=== PATIENT | male | born 1985 | race African-American/Black ===

== ENCOUNTER 2016-11-12 07:29 | Emergency (ER) | payer SELFPAY ==
[~2016-11-12] VITALS: Ht 172.7 cm; Wt 90.9 kg
[~2016-11-12 07:29] MED LIST: NOCURR
[2016-11-12] MEDS ORDERED: KETOROLAC TROMETHAMINE 30 MG/ML VIAL IM ONE (08:45)
[2016-11-12 09:53] VITALS: BP 140/80
== END 2016-11-12 09:54 | disposition home or self-care (01) ==
LOC: EMS 07:30
DX: M54.32 Sciatica, left side (principal); F17.210 Nicotine dependence, cigarettes, uncomplicated
CPT/HCPCS: 96372; 99283; J1885

== ENCOUNTER 2016-11-14 11:22 | Emergency (ER) | payer SELFPAY ==
[~2016-11-14] VITALS: Ht 172.7 cm; Wt 81.0 kg
[2016-11-14 11:37] VITALS: BP 133/64
== END 2016-11-14 15:28 | disposition home or self-care (01) ==
LOC: EMS 11:23
DX: S76.312A Strain of muscle, fascia and tendon of the posterior muscle group at thigh level, left thigh, initial encounter (principal); F17.210 Nicotine dependence, cigarettes, uncomplicated; X58.XXXA Exposure to other specified factors, initial encounter; Y93.89 Activity, other specified; Y92.89 Other specified places as the place of occurrence of the external cause; Y99.8 Other external cause status
CPT/HCPCS: 99281

== ENCOUNTER 2018-08-18 14:58 | Emergency (ER) | payer SELFPAY ==
[~2018-08-18] VITALS: Ht 175.3 cm; Wt 109.1 kg
[2018-08-18] MEDS: SILVER NITRATE APPLICATOR 1 EA STICK TP ONE (15:36)
[2018-08-18] MEDS: PERTUSS(ACELL),DIPH,TET VAC/PF 0.5 ML VIAL IM ONE (15:37)
[2018-08-18] MEDS: BACITRACIN 0.9 GM PACKET OINTMENT TP ONE (15:37)
[2018-08-18 16:17] VITALS: BP 138/74
== END 2018-08-18 16:19 | disposition home or self-care (01) ==
LOC: EMS 14:58
DX: S61.312A Laceration without foreign body of right middle finger with damage to nail, initial encounter (principal); W45.8XXA Other foreign body or object entering through skin, initial encounter; F17.210 Nicotine dependence, cigarettes, uncomplicated; Y93.G3 Activity, cooking and baking; Y92.89 Other specified places as the place of occurrence of the external cause; Y99.8 Other external cause status
CPT/HCPCS: 12001; 90471; 90715; 99406

== ENCOUNTER 2019-07-23 05:08 | Emergency (ER) | payer SELFPAY ==
[~2019-07-23] VITALS: Ht 172.7 cm; Wt 103.2 kg
[2019-07-23] MEDS ORDERED: OLOPATADINE HCL 0.1% 5 ML OPHTHALMIC SOLUTION OS ONE (06:30)
[2019-07-23 06:48] VITALS: BP 128/100
== END 2019-07-23 06:55 | disposition home or self-care (01) ==
LOC: EMS 05:08
DX: H10.12 Acute atopic conjunctivitis, left eye (principal); F17.210 Nicotine dependence, cigarettes, uncomplicated
CPT/HCPCS: 99406

== ENCOUNTER 2019-12-15 17:39 | Emergency (ER) | payer SELFPAY ==
[~2019-12-15] VITALS: Ht 175.3 cm; Wt 99.1 kg
[2019-12-15] MEDS ORDERED: IBUPROFEN 400 MG TABLET PO ONE (18:15)
[2019-12-15 19:27] VITALS: BP 124/78
== END 2019-12-15 19:28 | disposition home or self-care (01) ==
LOC: EMS 17:40
DX: M75.31 Calcific tendinitis of right shoulder (principal); F17.210 Nicotine dependence, cigarettes, uncomplicated; J40 Bronchitis, not specified as acute or chronic
CPT/HCPCS: 99406

== ENCOUNTER 2020-06-07 19:00 | Emergency (ER) | payer SELFPAY ==
[~2020-06-07] VITALS: Ht 172.7 cm; Wt 99.5 kg
[2020-06-07 19:55] LABS: BASOPHILS % (AUTO) 0.5 % (0.0-2.0); EOSINOPHILS % (AUTO) 1.9 % (1.0-6.0); HEMATOCRIT 42.5 % (41-53); HEMOGLOBIN 14.2 g/dL (13.5-17.5); LYMPHOCYTES # (AUTO) 2.5 K/uL (1.0-4.8); LYMPHOCYTES % (AUTO) 22.8 % (22.0-44.0); MEAN CORPUSCULAR HEMOGLOBIN 29.6 pg (26.0-34.0); MEAN CORPUSCULAR HGB CONC 33.4 G/dL (31.0-37.0); MEAN CORPUSCULAR VOLUME 89 fL (80-100); MONOCYTES # (AUTO) 1.1 K/uL (0.1-1.0); MONOCYTES % (AUTO) 9.6 % (2.0-9.0); NEUTROPHILS # (AUTO) 7.2 K/uL (1.8-7.7); NEUTROPHILS % (AUTO) 65.2 % (40.0-70.0); PLATELET COUNT (AUTO) 188 K/uL (150-450); RED BLOOD CELL COUNT(AUTO) 4.79 MIL/uL (4.50-5.90); RED CELL DISTRIBUTION WIDTH 13.1 % (11.5-14.5)
[2020-06-07 20:05] VITALS: BP 130/79
[2020-06-07 20:11] LABS: ANION GAP 8 mmol/L (8-16); CALCIUM, TOTAL 8.6 mg/dL (8.8-10.5); CARBON DIOXIDE 27 mmol/L (22-29); CHLORIDE 106 mmol/L (98-107); CREATININE 0.77 mg/dL (0.60-1.30); GLOMERULAR FILTR. RATE CALC > 60 mL/min (>60); GLUCOSE,RANDOM 141 mg/dL (70-110); POTASSIUM 3.7 mmol/L (3.5-5.1); SODIUM SERUM 141 mmol/L (136-145); UREA NITROGEN, BLOOD 11 mg/dL (7-18)
[2020-06-07 20:17] LABS: ALANINE AMINOTRANSFERASE 18 U/L (12-78); ALBUMIN 3.3 g/dL (3.4-5.0); ALKALINE PHOSPHATASE 91 U/L (46-116); ASPARTATE AMINOTRANSFERASE 12 U/L (15-37); BILIRUBIN,TOTAL 0.3 mg/dL (0.1-1.0); LIPASE 126 U/L (73-393); TOTAL PROTEIN, SERUM 7.2 g/dL (6.4-8.2)
== END 2020-06-07 20:49 | disposition home or self-care (01) ==
LOC: EMS 19:00
DX: R19.7 Diarrhea, unspecified (principal); R10.32 Left lower quadrant pain; Z20.828 Contact with and (suspected) exposure to other viral communicable diseases
CPT/HCPCS: 36415; 80053; 83690; 85025; 99283; U0003

== ENCOUNTER 2020-07-22 15:27 | Emergency (ER) | payer MEDICAID, SELFPAY ==
[~2020-07-22] VITALS: Ht 175.3 cm; Wt 90.9 kg
[2020-07-22] MEDS ORDERED: LIDOCAINE 5% TRANSDERMAL PATCH TD ONE (17:15)
[2020-07-22 17:42] VITALS: BP 132/78
== END 2020-07-22 17:43 | disposition home or self-care (01) ==
LOC: EMS 15:27
DX: M54.2 Cervicalgia (principal); M25.512 Pain in left shoulder; F17.210 Nicotine dependence, cigarettes, uncomplicated; V43.52XA Car driver injured in collision with other type car in traffic accident, initial encounter; Y93.89 Activity, other specified; Y92.488 Other paved roadways as the place of occurrence of the external cause; Y99.8 Other external cause status

== ENCOUNTER 2020-08-31 08:26 | Emergency (ER) | payer MEDICAID ==
[~2020-08-31] VITALS: Ht 175.3 cm; Wt 97.7 kg
[2020-08-31 08:37] VITALS: BP 138/113
== END 2020-08-31 08:50 | disposition home or self-care (01) ==
LOC: EMS 08:28
DX: Z20.822 Contact with and (suspected) exposure to COVID-19 (principal); J40 Bronchitis, not specified as acute or chronic; F17.210 Nicotine dependence, cigarettes, uncomplicated
CPT/HCPCS: 99283; U0003

== ENCOUNTER 2020-11-11 16:21 | Emergency (ER) | payer SELFPAY ==
[~2020-11-11] VITALS: Ht 175.3 cm; Wt 100.0 kg
[2020-11-11 16:25] VITALS: BP 131/90
== END 2020-11-11 17:49 | disposition home or self-care (01) ==
LOC: EMS 16:21
DX: Z04.3 Encounter for examination and observation following other accident (principal); F17.210 Nicotine dependence, cigarettes, uncomplicated; Z91.018 Allergy to other foods
CPT/HCPCS: 99281; Z7502

== ENCOUNTER 2022-08-17 17:25 | Emergency (ER) | payer OTHER ==
[~2022-08-17] VITALS: Ht 172.7 cm; Wt 95.5 kg
[2022-08-17] MEDS ORDERED: GLIP10TA10 PO (17:42)
[2022-08-17] MEDS ORDERED: METF-1211 PO (17:42)
[2022-08-17 17:48] LABS: COVID AG,FIA SOURCE NASAL SWAB
[2022-08-17 18:10] LABS: INFLUENZA TYPE A NEGATIVE FOR TYPE A (NEGATIVE); INFLUENZA TYPE B NEGATIVE FOR TYPE B (NEGATIVE)
[2022-08-17 18:52] LABS: RAPID GROUP A STREP NEGATIVE (NEGATIVE)
[2022-08-17 19:02] VITALS: BP 128/87
== END 2022-08-17 19:34 | disposition home or self-care (01) ==
LOC: EMS 17:27
DX: J06.9 Acute upper respiratory infection, unspecified (principal); E11.9 Type 2 diabetes mellitus without complications; F17.210 Nicotine dependence, cigarettes, uncomplicated; Z91.018 Allergy to other foods; Z98.890 Other specified postprocedural states; Z20.822 Contact with and (suspected) exposure to COVID-19
CPT/HCPCS: 87430; 87804; 99283

== ENCOUNTER 2023-07-19 18:48 | Emergency (ER) | payer OTHER ==
[~2023-07-19] VITALS: Ht 172.7 cm; Wt 100.0 kg
[~2023-07-19 18:48] MED LIST changes: +GLIP10TA10 PO; +METF-1211 PO; -NOCURR
[2023-07-19 18:53] VITALS: BP 150/98; PULSE 88; RESP 18; TEMP 98.5
[2023-07-19] MEDS ORDERED: METHOCARBAMOL 500 MG TABLET PO ONE (20:45)
[2023-07-19] MEDS ORDERED: IBUPROFEN 600 MG TABLET PO ONE (20:45)
== END 2023-07-19 21:00 | disposition left against medical advice (07) ==
LOC: EMS 18:51
DX: M54.2 Cervicalgia (principal); Z53.21 Procedure and treatment not carried out due to patient leaving prior to being seen by health care provider
CPT/HCPCS: 99281; Z7502

== ENCOUNTER 2023-07-22 02:15 | Emergency (ER) | payer OTHER ==
[~2023-07-22] VITALS: Ht 172.7 cm; Wt 100.0 kg
[2023-07-22 02:40] VITALS: BP 147/86; PULSE 70; RESP 16; TEMP 98.2
[2023-07-22] MEDS ORDERED: KETOROLAC TROMETHAMINE 60 MG/2 ML VIAL IM ONE (03:45)
[2023-07-22] MEDS ORDERED: IBUP-1492 PO (03:58)
[2023-07-22 07:22] LABS: GLUCOMETER DEV NAME(LOC) ER.6; GLUCOSE,POINT OF CARE 211 MG/DL (70-110)
== END 2023-07-22 05:20 | disposition home or self-care (01) ==
LOC: EMS 02:17
DX: R51.9 Headache, unspecified (principal); E11.9 Type 2 diabetes mellitus without complications; F17.210 Nicotine dependence, cigarettes, uncomplicated; Z91.018 Allergy to other foods
CPT/HCPCS: 99283; 82962; 96372; J1885

== ENCOUNTER 2025-02-13 08:27 | Emergency (ER) | payer MEDICAID, OTHER ==
[~2025-02-13] VITALS: Ht 172.7 cm; Wt 100.0 kg
[~2025-02-13 08:27] MED LIST changes: -GLIP10TA10 PO; +GLIP10TA17 PO; +IBUP-1492 PO
[2025-02-13] MEDS: INSULIN REGULAR, HUMAN 100 UNITS/ML SQ ONE (09:12)
[2025-02-13 09:16] LABS: GLUCOMETER DEV NAME(LOC) ERT.7; GLUCOSE,POINT OF CARE 445 MG/DL (70-110)
[2025-02-13 09:21] LABS: PLATELET COUNT (AUTO) 204 K/uL (150-450); RED BLOOD CELL COUNT(AUTO) 5.30 MIL/uL (4.50-5.90); RED CELL DISTRIBUTION WIDTH 13.6 % (11.5-14.5); WHITE BLOOD COUNT (AUTO) 13.4 K/uL (4.5-11.0)
[2025-02-13 09:28] LABS: CALCIUM, TOTAL 8.7 mg/dL (8.8-10.5); CREATININE 1.09 mg/dL (0.60-1.30); GLOMERULAR FILTR. RATE CALC > 60 mL/min (>60); SODIUM SERUM 135 mmol/L (136-145); UREA NITROGEN, BLOOD 14 mg/dL (7-18)
[2025-02-13 09:30] LABS: GLUCOSE,RANDOM 421 mg/dL (70-110)
[2025-02-13] MEDS: CefTRIAXone 1 GM/DEXTROSE 50 ML IV ONE (10:03)
[2025-02-13] MEDS: DEXAMETHASONE SOD PHOS 4 MG/ML 5 ML VIAL IVP ONE (10:03)
[2025-02-13] MEDS: KETOROLAC TROMETHAMINE 30 MG/ML VIAL IVP ONE (10:03)
[2025-02-13] MEDS ORDERED: METF-1211 PO (10:16)
[2025-02-13] MEDS: SODIUM CHLORIDE 0.9% 1,000 ML IV ONE (10:26)
[2025-02-13 10:36] LABS: GLUCOMETER DEV NAME(LOC) ERT.7; GLUCOSE,POINT OF CARE 425 MG/DL (70-110)
[2025-02-13 11:30] VITALS: BP 128/77; PULSE 84; RESP 18; TEMP 97.605248; O2SAT 100
[2025-02-13] MEDS ORDERED: PENI500T2 PO (11:51)
== END 2025-02-13 13:12 | disposition home or self-care (01) ==
LOC: EMS 08:28
DX: I88.9 Nonspecific lymphadenitis, unspecified (principal); J02.9 Acute pharyngitis, unspecified; E11.9 Type 2 diabetes mellitus without complications; F17.210 Nicotine dependence, cigarettes, uncomplicated; Z98.890 Other specified postprocedural states; Z79.899 Other long term (current) drug therapy
CPT/HCPCS: 99285; 96365; 70490; 96375; 80048; 82962; 85025; 36415; 96372; J1885; J0696; J1100; J1815; J7030

== ENCOUNTER 2025-07-24 08:10 | Emergency (ER) | payer SELFPAY ==
[~2025-07-24] VITALS: Ht 175.3 cm; Wt 93.2 kg
[~2025-07-24 08:10] MED LIST changes: -GLIP10TA17 PO; -IBUP-1492 PO; +PENI500T2 PO
[2025-07-24 08:19] VITALS: TEMP 98.2
[2025-07-24 09:33] LABS: PLATELET COUNT (AUTO) 227 K/uL (150-450); RED BLOOD CELL COUNT(AUTO) 5.73 MIL/uL (4.50-5.90); RED CELL DISTRIBUTION WIDTH 13.2 % (11.5-14.5); WHITE BLOOD COUNT (AUTO) 14.8 K/uL (4.5-11.0)
[2025-07-24 09:44] LABS: CALCIUM, TOTAL 9.3 mg/dL (8.8-10.5); CREATININE 0.80 mg/dL (0.60-1.30); GLOMERULAR FILTR. RATE CALC > 60 mL/min (>60); GLUCOSE,RANDOM 341 mg/dL (70-110); SODIUM SERUM 133 mmol/L (136-145); UREA NITROGEN, BLOOD 10 mg/dL (7-18)
[2025-07-24 09:49] LABS: TROPONIN I-HIGH SENSITIVITY Less Than 4 ng/L (<76)
[2025-07-24 10:00] VITALS: BP 124/87; PULSE 74; RESP 18; O2SAT 98
[2025-07-24] MEDS ORDERED: METF-1211 PO (10:03)
== END 2025-07-24 10:34 | disposition home or self-care (01) ==
LOC: EMS 08:10
DX: E11.65 Type 2 diabetes mellitus with hyperglycemia (principal); R07.89 Other chest pain; F17.210 Nicotine dependence, cigarettes, uncomplicated
CPT/HCPCS: 80048; 82962; 84484; 85025; 93005; 99284